=== PATIENT | female | born 1970 | race Two or more races ===

== ENCOUNTER 2020-04-22 02:43 | Emergency (ER) | payer MEDICAID ==
[~2020-04-22] VITALS: Ht 162.6 cm; Wt 86.2 kg
--- NOTE | 2020-04-22 02:54 | Emergency Room Report ---
History of Present Illness General Chief Complaint: Lower Extremity Injury Source: Patient Present Illness [facility] This is a 49-year-old female with history of diabetes. She presents with chief plaint of bilateral lower extremity pain and swelling. Onset for last 2 days. She says she hit her left leg on a bicycle pedal the other day. Increasing swelling. Pain is 8 out of 10. Worse with walking. Better with rest. No fever chills but no drainage. No shortness of breath. No cough. Allergies: Coded Allergies: FISH CONTAINING PRODUCTS (Verified Allergy, Unknown, 04/22/20) COVID-19 Screening Contact w/high risk pt: No Experienced COVID-19 symptoms?: No COVID-19 Testing performed MEDICAL PRACTITIONERS: No Patient History Past Medical History: see triage record, old chart reviewed, DM Past Surgical History: none Pertinent Family History: none Social History: Reports: drug use - Marijuana Now: No Immunizations: other Reviewed Nursing Documentation: PMH: Agreed; PSxH: Agreed Nursing Documentation-PMH Hx Hypertension: Yes Hx Diabetes: Yes Review of Systems Eye: Denies: eye pain, blurred vision ENT: Denies: ear pain, nose congestion, throat swelling Respiratory: Denies: cough, shortness of breath Cardiovascular: Denies: chest pain, palpitations Gastrointestinal: Denies: abdominal pain, diarrhea, nausea, vomiting Musculoskeletal: Reports: muscle pain; Denies: back pain, joint pain Skin: Denies: rash Neurological: Denies: headache, numbness Endocrine: Denies: increased thirst, increased urine Hematologic/Lymphatic: Denies: easy bruising All Other Systems: negative except mentioned in HPI Physical Exam Vital Signs Date Time Temp Pulse Resp B/P (MAP) Pulse Ox O2 Delivery O2 Flow Rate FiO2 04/22/20 02:46 98.4 110 18 122/83 (96) 98 Room Air Vitals with tachycardia Sp02 EP Interpretation: reviewed, normal General Appearance: well appearing, no apparent distress, alert Head: normocephalic, atraumatic Eyes: bilateral eye PERRL, bilateral eye EOMI ENT: hearing grossly normal, normal pharynx Neck: full range of motion, supple, no meningismus Respiratory: chest non-tender, lungs clear, normal breath sounds Cardiovascular #1: regular rate, rhythm, no murmur Gastrointestinal: normal bowel sounds, non tender, no mass, no organomegaly, no bruit, non-distended Musculoskeletal: back normal, normal range of motion, gait/station normal, ot her - Lower extremities: Left lower extremity showed 1+ edema and erythema to the dorsum of the tibia area. Mild warmth. No drainage. Right lower extremity show mild erythema and 1+ edema. Psychiatric: mood/affect normal Medical Decision Making Homeless Attestation I, The treating physician, Dr Simone Hurley, has assessed and agrees that patient is medically stable for discharge to an outpatient disposition. Diagnostic Impression: Primary Impression: Cellulitis of both lower extremities Additional Impressions: Methamphetamine abuse Anemia Qualified Codes: D64.9 - Anemia, unspecified Hyperglycemia due to type 2 diabetes mellitus Qualified Codes: E11.65 - Type 2 diabetes mellitus with hyperglycemia ER Course Patient presents with redness to lower extremity. This is consistent with cellulitis. Unlikely to be DVT of bilateral lower extremity. No evidence of necrotizing fasciitis or foreign body. Antibiotics given here. Will discharge home. Last Vital Signs Date Time Temp Pulse Resp B/P (MAP) Pulse Ox O2 Delivery O2 Flow Rate FiO2 04/22/20 02:46 98.4 110 18 122/83 (96) 98 Room Air Status: improved Disposition: HOME, SELF-CARE Condition: Stable Scripts Clindamycin Hcl (CLINDAMYCIN HCL) 300 Mg Capsule 300 MG ORAL THREE TIMES A DAY, #21 CAP Prov: Simone Hurley MD 04/22/20 Additional Instructions: Abstain from drugs and alcohol. Follow-up with your doctor in 7 days. Return if worse. Simone Hurley MD Apr 22, 2020 02:54
[2020-04-22] MEDS ORDERED: Morphine Sulfate 4mg/ml Inj (IV USE ONLY) IVP ONE (03:00)
[2020-04-22] MEDS ORDERED: cefTRIAXone 1 GM in NS 55 ML IVPB ONE (03:00)
[2020-04-22 03:26] LABS: BASOPHILS % (AUTO) 0.9 % (0.0-2.0); EOSINOPHILS % (AUTO) 0.5 % (0.0-3.0); HEMATOCRIT 27.4 % (37.0-47.0); HEMOGLOBIN 9.7 G/DL (12.0-16.0); LYMPHOCYTES % (AUTO) 18.6 % (20.0-45.0); MEAN CORPUSCULAR VOLUME 82 FL (80-99); MONOCYTES % (AUTO) 4.5 % (1.0-10.0); NEUTROPHILS % (AUTO) 75.5 % (45.0-75.0); PLATELET COUNT 262 K/UL (150-450); RED BLOOD COUNT 3.36 M/UL (4.20-5.40); RED CELL DISTRIBUTION WIDTH 17.9 % (11.6-14.8); WHITE BLOOD COUNT 10.9 K/UL (4.8-10.8)
[2020-04-22 03:37] LABS: CALCIUM 8.6 MG/DL (8.5-10.1); CREATININE 1.3 MG/DL (0.55-1.30); POTASSIUM 3.9 MMOL/L (3.5-5.1)
[2020-04-22 03:42] LABS: APPEARANCE,URINE SLIGHTLY CLOUDY; BILIRUBIN, URINE NEGATIVE (NEGATIVE); GLUCOSE, URINE (UA) 4+ (NEGATIVE); KETONES,URINE NEGATIVE (NEGATIVE); LEUKOCYTE ESTERASE ,URINE 1+ (NEGATIVE); NITRITE,URINE NEGATIVE (NEGATIVE); PH,URINE 6 (4.5-8.0); PROTEIN,URINE 2+ (NEGATIVE); UROBILINOGEN,URINE 1 MG/DL (0.0-1.0)
[2020-04-22 03:46] LABS: COLOR,URINE PALE YELLOW
[2020-04-22 03:48] LABS: ALBUMIN 2.7 G/DL (3.4-5.0); ALBUMIN/GLOBULIN RATIO 0.6 (1.0-2.7); BILIRUBIN,TOTAL 0.4 MG/DL (0.2-1.0)
[2020-04-22] MEDS ORDERED: CLINDAMYCIN HC300 MG ORAL (03:58)
[2020-04-22] MEDS ORDERED: metroNIDAZOLE 500mg tab ORAL ONE (05:00)
[2020-04-22 05:50] VITALS: BP 118/80
== END 2020-04-22 05:50 | disposition home or self-care (01) ==
LOC: EDBD 02:43 → EMR 03:09
DX: L03.116 Cellulitis of left lower limb (principal); L03.115 Cellulitis of right lower limb; A59.9 Trichomoniasis, unspecified; F15.10 Other stimulant abuse, uncomplicated; D64.9 Anemia, unspecified; E11.65 Type 2 diabetes mellitus with hyperglycemia; I10 Essential (primary) hypertension; Z91.013 Allergy to seafood
CPT/HCPCS: 36415; 80053; 80307; 81001; 83880; 85025; 96365; 96375; J0696; J2270; Z7502; 99284